=== PATIENT | male | born 1990 | race Caucasian/White ===

== ENCOUNTER 2017-03-15 18:50 | Emergency (ER) | payer OTHER ==
[~2017-03-15] VITALS: Ht 193 cm; Wt 102.6 kg
[~2017-03-15 18:50] MED LIST: IBUP-1459 PO; PRLSR20 PO
[2017-03-15 19:00] VITALS: TEMP 36.8; Ht 193 cm; Wt 102.6 kg
[2017-03-15 19:04] VITALS: O2SAT 99
[2017-03-15] MEDS ORDERED: SODIUM CHLORIDE 0.9% 1000ML 1,000 ML IV STA (19:11)
[2017-03-15] MEDS ORDERED: MoRPHine SULFATE 10 MG/ML CARP/VIAL IV STA (19:11)
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
[2017-03-15 20:20] VITALS: BP 153/82; PULSE 85; O2SAT 99
== END 2017-03-15 20:44 | disposition home or self-care (01) ==
LOC: C.EDB 18:52
DX: M54.5 Low back pain (principal); V03.90XA Pedestrian on foot injured in collision with car, pick-up truck or van, unspecified whether traffic or nontraffic accident, initial encounter; Z88.5 Allergy status to narcotic agent; Z88.6 Allergy status to analgesic agent; Z88.8 Allergy status to other drugs, medicaments and biological substances; Z83.3 Family history of diabetes mellitus